=== PATIENT | female | born 1995 | race Caucasian/White ===

== ENCOUNTER 2022-08-28 20:21 | Emergency (ER) | payer OTHER ==
[~2022-08-28] VITALS: Ht 167.6 cm; Wt 146.1 kg
[2022-08-28 20:23] VITALS: BP 140/100
--- NOTE | 2022-08-28 20:36 | NUR ---
PT W/C ASSITED TO BED 9
--- NOTE | 2022-08-28 21:40 | NUR ---
PT INFORMED AOBUT THE TIME FRAME THAT IT TAKES TO READ X-RAY'S, AND WHAT THE PROCESS WILL BE TIME COMES.
--- NOTE | 2022-08-28 22:34 | NUR ---
KNEE IMBOLIZER TO R KNEE AND CRUTCHES PROVIDED.
--- NOTE | 2022-08-29 01:40 | NUR ---
WAITING FOR XRAY TO BE READ, RADIOLOGY CALLED AND ASKED TO HAVE XRAY READ, INFORMED THAT STATREAD IS BEHIND AND THAT IS WHY RESULTS ARE TAKING SOME TIME.
[2022-08-29] MEDS ORDERED: KETOROLAC 60 MG/2 ML VIAL IM ONE (03:00)
[2022-08-29] MEDS ORDERED: NAPR-54 PO (03:07)
[2022-08-29 03:14] VITALS: BP 140/100
== END 2022-08-29 03:14 | disposition home or self-care (01) ==
LOC: MED 20:21
DX: M25.561 Pain in right knee (principal)
CPT/HCPCS: 73562; 96372; 99283; J1885; Q0092